=== PATIENT | male | born 1990 | race Caucasian/White ===

== ENCOUNTER 2016-12-29 23:03 | Emergency (ER) | payer OTHER ==
[~2016-12-29] VITALS: Ht 185.4 cm; Wt 88.3 kg
[2016-12-29 23:10] VITALS: Ht 185.4 cm; Wt 88.3 kg
[2016-12-29] MEDS ORDERED: IBUPROFEN 200 MG TAB PO STA (23:28)
--- NOTE | 2016-12-30 00:07 | EMERGENCY ROOM VISIT NOTE ---
ED Visit Note First contact with patient: 23:17 CHIEF COMPLAINT: Left Ankle pain HISTORY OF PRESENT ILLNESS: This knee 6-year-old male patient presents to the emergency department approximately 3 hours after sustaining an injury to the left ankle and foot with a twisting, inversion motion after jumping while playing basketball. Patient states he landed on someone else's shoe, causing his foot to invert. The patient complains of pain along the outside of the ankle. The patient denies pain of the foot. The patient rates the pain as sharp and 6/10 with activity. The patient is able to bear weight on the foot, however this causes discomfort. Constant pain, worse with movement, weight bearing, and the dependent position. No knee pain, the patient is able to move their toes. No numbness or weakness of the foot, no laceration. The patient has not had a previous fracture to this ankle. The patient has taken 400 mg ibuprofen for the pain. The patient denies any other injury. REVIEW OF SYSTEMS: A 6 system review of systems was completed with positives and pertinent negatives listed in the HPI. ALLERGIES: penicillin MEDICATIONS: None PMH: None SOCIAL HISTORY: Patient is a grad student at [employer]. He denies drug, alcohol, tobacco use. PHYSICAL EXAM: Vital Signs: Reviewed Nurse's notes, vital signs stable. GENERAL : He 6-year-old male, no acute distress, but appears in pain, well-developed, well-nourished. MENTAL STATUS: Alert, oriented to person place and time, and cooperative. MUSCULOSKELETAL: The left ankle is swollen and tender over the lateral malleolus, but the skin is intact and there is no ligamentous instability. There is no fifth metatarsal tenderness. There is no tenderness over the rest of the foot. There is no calf or tibia/fibular tenderness. There is no visual deformity. The foot and toes are warm and well-perfused. Dorsalis pedis pulse 2+. Sensation to pain and light touch is intact. Capillary refill less than 2 seconds. EMERGENCY DEPARTMENT COURSE: I examined the patient. X-rays of the left ankle were reviewed by myself and Dr. Knott and read, revealing intact ankle mortise, mild soft tissue swelling laterally, no acute fracture. A gel splint was applied to the ankle under my direction and the position was satisfactory. Neurovascular status was rechecked and intact. The patient was instructed on the use of crutches. The patient was discharged home in good condition. DIAGNOSIS: Left ankle sprain DISCHARGE INSTRUCTIONS: You have been treated in the Emergency Department for an Ankle sprain. For pain control, you can use the following tiav-lef-plzyxvk medicines (if >12 yo): - Regular strength (200 mg/tab) Advil (ibuprofen) 3-4 tabs every 6-8 hours as needed. Do not exceed a dose of 3200 mg per day. I do recommend you take this medication around the clock for the first 48-72 hours to decrease swelling and pain. - Regular strength (325mg/tab) Tylenol (acetaminophen) 2 tabs every 4-6 hours as needed. Do not exceed 12 tablets in a 24 hour period. Avoid taking more than 4 grams (4000 mg) of Tylenol per day. This includes any other sources of acetaminophen you may take on a regular basis. You may take this 3 hours after dose of Motrin for breakthrough pain. If this is a recent injury (<24 hrs), ice can be applied to the area of pain for the first 3 days to help decrease pain and inflammation. You have been provided the number for an Orthopaedic Surgeon. You should call this number as soon as possible to establish a follow-up visit from today's Emergency Department visit. Keep the ankle brace/splint in place until cleared by Orthopedics. Use the crutches you have been provided to keep ALL weight off of the ankle until weight bearing is tolerable. Return to the Emergency Department if your current symptoms worsen despite treatment course outlined above, or if you develop any of the following symptoms : intractable pain despite aforementioned treatment course or new onset of numbness or tingling of the foot. Current/Historical Medications No Active Prescriptions or Reported Meds Allergies Coded Allergies: Penicillins (Verified Allergy, Intermediate, rash, 12/29/16) Vital Signs Date Time Temp Pulse Resp B/P (MAP) Pulse Ox O2 Delivery O2 Flow Rate FiO2 12/29/16 23:10 36.8 74 18 127/71 98 Room Air Medications Administered Medications (Trade) Dose Ordered Sig/Nasrin Route Start Time Stop Time Status Last Admin Dose Admin Ibuprofen (Advil Tab) 400 mg NOW STAT PO 12/29/16 23:28 12/29/16 23:29 DC 12/29/16 23:36 400 MG Departure Information Impression Primary Impression: Left ankle sprain Dispostion Home / Self-Care Condition GOOD Prescriptions No Active Prescriptions or Reported Meds Referrals No Doctor, Assigned (PCP) Nilson Glasgow M.D. Patient Instructions ED Sprain Ankle, My [facility] Additional Instructions You have been treated in the Emergency Department for an Ankle sprain. For pain control, you can use the following laoe-zao-iescuab medicines (if >12 yo): - Regular strength (200 mg/tab) Advil (ibuprofen) 3-4 tabs every 6-8 hours as needed. Do not exceed a dose of 3200 mg per day. I do recommend you take this medication around the clock for the first 48-72 hours to decrease swelling and pain. - Regular strength (325mg/tab) Tylenol (acetaminophen) 2 tabs every 4-6 hours as needed. Do not exceed 12 tablets in a 24 hour period. Avoid taking more than 4 grams (4000 mg) of Tylenol per day. This includes any other sources of acetaminophen you may take on a regular basis. You may take this 3 hours after dose of Motrin for breakthrough pain. If this is a recent injury (<24 hrs), ice can be applied to the area of pain for the first 3 days to help decrease pain and inflammation. You have been provided the number for an Orthopaedic Surgeon. You should call this number as soon as possible to establish a follow-up visit from today's Emergency Department visit. Keep the ankle brace/splint in place until cleared by Orthopedics. Use the crutches you have been provided to keep ALL weight off of the ankle until weight bearing is tolerable. Return to the Emergency Department if your current symptoms worsen despite treatment course outlined above, or if you develop any of the following symptoms : intractable pain despite aforementioned treatment course or new onset of numbness or tingling of the foot. Problem Qualifiers Primary Impression: Left ankle sprain Encounter type: initial encounter Involved ligament of ankle: unspecified ligament Qualified Codes: S93.402A - Sprain of unspecified ligament of left ankle, initial encounter
[2016-12-30 00:20] VITALS: BP 117/62; PULSE 70; TEMP 36.8; O2SAT 99
--- NOTE | 2016-12-30 07:18 | DIAGNOSTIC IMAGING REPORT ---
LEFT ANKLE 3 VIEWS HISTORY: left lateral ankle pain/swelling COMPARISON: None. FINDINGS: There is no fracture or dislocation. Diffuse soft tissue swelling. No radiopaque foreign bodies. IMPRESSION: No fractures. Electronically signed by: Kenji Dumont M.D. 12/30/2016 7:16 AM Dictated Date/Time: 12/30/2016 7:16 AM
== END 2016-12-30 00:20 | disposition home or self-care (01) ==
LOC: C.EDB 23:04
DX: S93.402A Sprain of unspecified ligament of left ankle, initial encounter (principal); X50.0XXA Overexertion from strenuous movement or load, initial encounter; Y93.67 Activity, basketball